=== PATIENT | male | born 1985 | race Two or more races ===

== ENCOUNTER 2018-10-15 10:42 | Emergency (ER) | payer SELFPAY ==
[~2018-10-15] VITALS: Ht 165.1 cm; Wt 56.7 kg
[2018-10-15 10:49] VITALS: BP 142/81
[2018-10-15] MEDS ORDERED: KETOROLAC TROMETH 60MG/2ML VIAL IM ONE (11:30)
== END 2018-10-15 12:21 | disposition home or self-care (01) ==
LOC: ER 10:42
DX: M54.6 Pain in thoracic spine (principal); G89.29 Other chronic pain; F12.10 Cannabis abuse, uncomplicated; Z88.8 Allergy status to other drugs, medicaments and biological substances
CPT/HCPCS: 96372; 99283; J1885